=== PATIENT | male | born 1960 | race African-American/Black ===

== ENCOUNTER → 2017-10-29 | Outpatient (CLI) | END | disposition home or self-care (01) ==

== ENCOUNTER → 2017-11-19 | Outpatient (CLI) | END | disposition home or self-care (01) ==

== ENCOUNTER → 2018-05-31 | Outpatient (CLI) | payer BC ==
[~2018-05-31] MED LIST: AMLO1CAP70 PO; CARI350T PO; HYDR25TA6 PO
--- NOTE | 2018-05-31 14:50 | CONS ---
Consult Date/Type/Reason Admit Date/Time Initial Consult Date Date/Time of Note DATE: 05/31/18 TIME: 14:46 Subjective 57-year-old male following up today for right hip osteoarthritis and severe right lower extremity weakness likely secondary to lumbar nerve root compression. At last visit secondary to his profound weakness it was recommended that he get a lumbar spine MRI and based on those results determine if he needs to see a spine surgeon. In the interim the case has become a workers comp case. The patient did not get the MRI yet as he is waiting for it to be approved by Worker's Comp. States that he feels slightly weaker than previous visit otherwise no changes. Objective Vitals weight: 232 pounds Height: 6 feet 5 inches Temperature: 97.9 Heart Rate: 82 Blood Pressure: 151/102 Respiratory Rate: 14 Exam General: Awake, alert, in no acute distress, pleasant and cooperative Heart: regular rhythm Lungs: breathing comfortably, no tachypnea or dyspnea Musculoskeletal: Right hip Well developed male in no apparent distress. Gait demonstrates a severe Trendelenburg with mild foot drop, antalgic components and short leg component. Standing, the pelvis is level and supine there is a true leg length discrepancy, with the right leg 1.5 cm cm short. No tenderness over trochanteric bursa or IT band. ----- Range of motion: Flexion: 70 Extension: 0 Internal rotation: 0 External rotation: 30 Abduction: 30 Adduction: 10 ----- Sitting there is no pelvic obliquity. Pain at the extremes of motion of the affected hip. Skin was intact throughout both lower extremities. Sensation decreased to light touch in a sural, saphenous, deep peroneal, superficial peroneal, medial and lateral plantar nerve distribution. Neurovascular exam showed 2/5 strength in the abductors, 4/5 hip flexors and extensors,4-/5 quads and 3/5 hamstrings, 3/5 EHL, 4-/5 tibialis anterior, 4/5gastroc. +1 patella and Achilles tendon reflex. 2 beats of clonus. Downgoing Babinski. Normal and symmetrical pulses were palpated in both the dorsalis pedis and posterior tibial arteries. There is no sign of venous stasis. Results/Medications Home Meds Reported Medications Amlodipine Besylate/Benazepril (Lotrel 10-20 Mg Capsule) 1 Cap Capsule, 1 CAP PO DAILY 04/14/11 Carisoprodol* (Soma*) 350 Mg Tablet, 350 MG PO TID PRN 04/14/11 Hydrochlorothiazide (Hydrochlorothiazide) 25 Mg Tablet, 25 MG PO DAILY 04/14/11 Assessment/Plan Hospital Course (Demo Recall) 57-year-old male with known end-stage osteoarthritis of the right hip as well as severe lumbar spine degeneration with right lower extremity weakness. Secondary to his lower extremity weakness I am recommending that he has his spine evaluated and treated prior to his hip as he has progressive symptoms of weakness. This is time sensitive in terms of regaining prior function. The case now Worker's Compensation case. He will therefore go through Worker's Compensation physicians. I did provide the patient with a work note as he is currently unable to work secondary to his lower extremity weakness. ROSI PERDOMO MD May 31, 2018 14:50
== END | disposition home or self-care (01) ==
LOC: HKI 14:05
PROVIDERS: ATTEND Orthopaedic Surgery Adult Reconstructive Orthopaedic Surgery
DX: M16.11 Unilateral primary osteoarthritis, right hip (principal); M51.36 Other intervertebral disc degeneration, lumbar region; R53.1 Weakness
CPT/HCPCS: G0463